=== PATIENT | male | born 1955 | race Caucasian/White ===

== ENCOUNTER 2016-12-27 00:30 | Emergency (ER) | payer OTHER ==
[~2016-12-27] VITALS: Ht 177.8 cm; Wt 95.5 kg
[~2016-12-27 00:30] MED LIST: AMLO5TAB2 PO; ATEN25TA PO; DICY10CA13 PO; KTC2C15 TP; LISI10TA2 PO; NICO1PAT39 TOPICAL; NICO1PAT40 TOPICAL; RANI150T11 PO
[2016-12-27 00:37] VITALS: BP 147/77; PULSE 112; RESP 20; O2SAT 94
--- NOTE | 2016-12-27 01:19 | ED.REPORT ---
HPI-General Illness Date of Service Dec 27, 2016 ED Provider: Peter Rea MD Patient is a 61 year old male with a history of schizophrenia, hypertension, and alcohol abuse who presents to the ED complaining of abdominal pain and vomiting that began this evening. He reports generally feeling unwell but is unable to describe his symptoms further. The patient admits to drinking several Hurricane beers this evening, each of which is 24oz. The patient states that he has been eating and drinking normally. Patient denies a fever, chills, cough, or diarrhea. He admits to smoking 1pp cigarettes daily. Patient has not had any recent contact with other sick individuals. Nursing Notes Stated Complaint: ANXIETY Chief Complaint: General Complaint Nursing Notes Reviewed: Yes Allergies: Coded Allergies: Penicillins (Verified Allergy, Severe, 09/27/16) Scheduled Amlodipine (Amlodipine) 5 Mg Tablet 5 MG PO DAILY Atenolol (Atenolol) 25 Mg Tablet 25 MG PO DAILY Ketoconazole (Ketoconazole) 15 Gm Cream..g. 0 TP BID apply to bilateral feet and in between toes twice daily Lisinopril (Lisinopril) 10 Mg Tablet 10 MG PO DAILY Nicotine (Nicoderm Cq 14 mg/24 hr) 1 Each Patch.td24 1 EACH TOPICAL DAILY Nicotine (Nicoderm Cq 7 mg/24 hr) 1 Each Patch.td24 1 EACH TOPICAL DAILY Ranitidine HCl (Ranitidine) 150 Mg Tablet 150 MG PO BID Scheduled PRN Dicyclomine (Dicyclomine) 10 Mg Capsule 10 MG PO QID PRN PRN For GI Cramps General Time Seen by MD: 01:13 Chief Complaint Abdominal pain, Not feeling well, Vomiting Hx Obtained From: Patient Arrived By: Walk-in Sudden in Onset?: No Onset Occurred: 1 - 4 hours ago Symptom Duration: Since onset Location: : Abdomen Severity: Current: Moderate Severity: Maximum: Moderate Recent Healthcare: No recent doctor visit, No recent hospitalization Similar Sx Previous: No Past Medical History Past Medical History Notes: PCP: Dr. 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 Physical Exam Vital Signs Vital Signs Date Time Temp Pulse Resp B/P Pulse Ox O2 Delivery O2 Flow Rate FiO2 12/27/16 00:37 36.3 112 20 147/77 94 Room Air Initial VS: Reviewed Extremities: Vascular intact, Neuro intact Skin: Warm, Dry, No cyanosis Neurologic: Alert, Oriented, Nonfocal Psychiatric: Mood/affect normal, Behavior normal, Normal thought content General/Constitutional: Awake, Alert Distress / Hydration: Positive: Dehydration moderate Appearance / Presentation: Positive: Pale Head / Eyes: Atraumatic, Normocephalic, PERRL ENT: Airway patent Mouth: Positive: Mucous membranes dry (lips dry) Neck: Supple, Full range of motion Respiratory / Chest: Breath sounds NL, Breath sounds = bilat, No respiratory distress, No rales, No rhonchi, No wheezing Cardiovascular: Regular rhythm, Heart sounds NL, No murmurs Heart Rate / Rhythm: Positive: Tachycardia Abdomen: Soft, Non-tender, No guarding, No rebound Interpretation & Diagnostics Interpretation & Diagnostics: Breathalyzer: 0.00 Urine Tox Dip: Negative Lab Results Interpretation Test 12/27/16 02:10 Hold Urine Received (Received) Re-Eval/Medical Decision Source of Hx: Old records Time of Eval: 03:27 Patient Status: Condition improved Re-Evaluation/Progress Note: Patient is requesting to be discharged and states that he feels improve. Discharge instructions and follow-up discussed. All questions were addressed. Return to the ED warnings given. Counseled Regarding: Diagnosis, Lab results, Need for follow-up, When/why to return to ED Discharge & Departure Primary Impression: Abdominal pain Abdominal location: generalized Qualified Code: R10.84 - Generalized abdominal pain Disposition: Home Discharge Condition All VS Reviewed: Yes Condition: Stable Patient Instructions: Acute Abdominal Pain (ED) Additional Instructions: Your abdominal exam is nontender. I do not suspect serious illness. Drink plenty of fluids. Get plenty of rest. Take your medicines as prescribed. Follow-up with your regular doctor if you have any further symptoms. Referrals: Janis Anthony MD (PCP) Scribe Attestation Portions of this note were transcribed by Masha Moscoso. I, Dr. Rea personally performed the history, physical exam and medical decision-making; I reviewed and confirmed the accuracy of the information in the transcribed note. Signed by: Marco Cisneros, 12/27/2016 0000 copies to: Janis Anthony MD, Peter Maier MD Dec 27, 2016 01:19 Masha Moscoso Dec 27, 2016 01:28
[2016-12-27] MEDS ORDERED: Ondansetron 8 mg ODT Tablet PO ONE (02:55)
== END 2016-12-27 03:46 | disposition home or self-care (01) ==
LOC: SED 00:30 → EDUNIT# 00:30 → EDBD 00:30 → SED 03:46
DX: R10.84 Generalized abdominal pain (principal); R11.2 Nausea with vomiting, unspecified; F20.9 Schizophrenia, unspecified; F10.10 Alcohol abuse, uncomplicated; I10 Essential (primary) hypertension; F17.200 Nicotine dependence, unspecified, uncomplicated; Z88.0 Allergy status to penicillin